=== PATIENT | male | born 1955 | race Caucasian/White ===

== ENCOUNTER 2018-05-29 15:47 | Emergency (ER) | payer OTHER ==
[2018-05-29 16:13] LABS: Hemoglobin 13.8 g/dL (14.0-18.0); Mean Corpuscular HGB CONC 34.2 g/dL (32.0-36.0); Mean Corpuscular Hemoglobin 30.2 pg (27.0-31.0); Mean Corpuscular Volume 88.3 fL (78.0-98.0); Mean Platelet Volume 9.4 fL (7.4-10.4); Platelet Count 256 thou/uL (130-400); RBC Distribution Width 12.4 % (11.5-14.5); Red Blood Cell (RBC) Count 4.58 mill/uL (4.70-6.10); White Blood Cell (WBC) Count 12.1 thou/uL (4.8-10.8)
--- NOTE | 2018-05-29 16:31 | RAD ---
FExam: Chest one view HISTORY:Shortness of breath Comparison: None FINDINGS: Cardiac silhouette:Enlarged Pulmonary vessels: Prominent Costophrenic angles: Right greater than left opacities due to pleural and parenchymal changes. LUNGS: Bibasilar opacity due to parenchymal changes such as atelectasis, pneumonia or aspiration. Pneumothorax: None Osseous abnormalities: None IMPRESSION: Bibasilar right greater than left pleural-parenchymal changes. Correlate for congestive h eart failure.
[2018-05-29 16:41] LABS: Band 4 % (5-11); Lymphocytes 1 % (21-51); MDiff Complete? YES; Monocytes 2 % (0-10); Neutrophil 93 % (42-75); Platelet Morphology Comment Appears Adequate
[2018-05-29] MEDS ORDERED: cefTRIAXone\\ROCEPHIN 1 GM VIAL ONE (17:08)
[2018-05-29 17:13] LABS: Albumin 3.6 g/dL (3.4-4.8)
[2018-05-29 17:14] LABS: Chloride 99 mmol/L (98-107); Potassium 3.3 mmol/L (3.5-5.1); Sodium 134 mmol/L (136-145)
[2018-05-29 17:15] LABS: Calcium 8.4 mg/dL (7.8-10.44)
[2018-05-29 17:16] LABS: Globulin 3.3 g/dL (2.4-3.5); Glucose 115 mg/dL (80-115); Protein, Total 6.9 g/dL (5.8-8.1)
[2018-05-29 17:17] LABS: Anion Gap 17 mmol/L (10-20); Bilirubin, Total 0.7 mg/dL (0.2-1.2); Carbon Dioxide 21 mmol/L (23-31)
[2018-05-29 17:18] LABS: Alkaline Phosphatase 70 U/L (40-150)
[2018-05-29 17:19] LABS: Calc. Creatinine Clearance 0 mL/min (70-130); Estimated GFR-MDRD Greater than 90
[2018-05-29] MEDS ORDERED: Azithromycin 500 MG VIAL ONE (17:19)
[2018-05-29 17:20] LABS: BUN (Urea Nitrogen) 12 mg/dL (8.4-25.7)
[2018-05-29 17:21] LABS: ALT (SGPT) 24 U/L (8-55); AST (SGOT) 19 U/L (5-34)
[2018-05-29 17:34] LABS: Troponin I Less than 0.010 ng/mL (< 0.028)
[2018-05-29 18:29] LABS: Bacteria/HPF None Seen HPF (None Seen); Bilirubin Negative (Negative); Blood, Urine Negative (Negative); Clarity CLEAR (Clear); Glucose, Urine (Dipstick) Negative (Negative); Hyaline Casts/LPF 4-6 HYALINE CAST LPF (0-3 Hyaline); Leukocyte Negative (Negative); Nitrite Negative (Negative); Protein, Urine (Dipstick) 100 mg/dL (Neg-Trace); pH, Urine 6.5 (5.0-9.0)
[2018-05-29 18:40] LABS: RBC/HPF None Seen HPF (0-3); Transitional Epithelial NONE SEEN HPF (0-3)
[2018-05-29 18:41] LABS: Renal Epithelial None Seen HPF (0-3)
== END 2018-05-29 22:34 | disposition short-term general hospital (02) ==
LOC: ERS 15:47
DX: J18.9 Pneumonia, unspecified organism (principal)
CPT/HCPCS: 36415; 71045; 80053; 81003; 81015; 83605; 83880; 84484; 85025; 87040; 93005; 96365; 96366; 96367; J0456; J0696